=== PATIENT | female | born 1995 | race Caucasian/White ===

== ENCOUNTER 2019-05-17 15:30 | Emergency (ER) | payer SELFPAY ==
--- NOTE | 2019-05-17 16:42 | ER Document Report ---
ED Medical Screen (RME) - General Chief Complaint: Vaginal Pain Stated Complaint: ABDOMINAL PAIN Time Seen by Provider: 05/17/19 16:39 Mode of Arrival: Ambulatory Information source: Patient Notes: 23-year-old female presents to ED for complaint of vaginal bleeding off and on for about 2 weeks. She states is not enough that she was up. Constantly. She states that she will go to the bathroom and her pants will be covered in blood so she does avoid cleans herself and then goes on with work. She states he does sometimes spot with her IUD but this is the first time where she is actually had this much blood. She stated she started having some pelvic cramping last night and is continued today. She states she has an IUD and they told her to feel for her strings. She states her and her had a hard time finding the strings and do not know if they messed anything up while looking for the strings. Patient is alert and oriented respirations regular and unlabored speaking in fu ll sentences. I have greeted and performed a rapid initial assessment of this patient. A comprehensive ED assessment and evaluation of the patient, analysis of test results and completion of medical decision making process will be conducted by an additional ED providers. TRAVEL OUTSIDE OF THE [place] IN LAST 30 DAYS: No - Related Data Allergies/Adverse Reactions: amoxicillin Allergy (Verified 04/26/16 06:44) diphenhydramine [From Benadryl] Allergy (Verified 05/17/19 15:30) Past Medical History - Social History Frequency of alcohol use: None Drug Abuse: None Psychiatric Medical History: Reports: Hx Depression - Immunizations Hx Diphtheria, Pertussis, Tetanus Vaccination: Yes Physical Exam - Vital signs Vitals: Temp Pulse Resp BP Pulse Ox 98.1 F 70 16 121/83 97 05/17/19 15:47 05/17/19 15:47 05/17/19 15:47 05/17/19 15:47 05/17/19 15:47 Course - Vital Signs Vital signs: Temp Pulse Resp BP Pulse Ox 98.1 F 70 16 121/83 97 05/17/19 15:47 05/17/19 15:47 05/17/19 15:47 05/17/19 15:47 05/17/19 15:47
[2019-05-17 17:40] LABS: ABSOLUTE EOSINOPHILS # (AUTO) 0.1 10^3/uL (0.0-0.6); ABSOLUTE LYMPHOCYTES (AUTO) 1.5 10^3/uL (0.5-4.7); ABSOLUTE MONOCYTES (AUTO) 0.8 10^3/uL (0.1-1.4); ABSOLUTE NEUT (AUTO) 11.3 10^3/uL (1.7-8.2); BASOPHILS % (AUTO) 0.3 % (0-2); EOSINOPHILS % (AUTO) 0.5 % (0-6); HEMATOCRIT 41.8 % (36.0-47.0); MEAN CORPUSCULAR HEMOGLOBIN 29.6 pg (27.0-33.4); MEAN CORPUSCULAR HGB CONC 33.4 g/dL (32.0-36.0); MEAN CORPUSCULAR VOLUME 89 fl (80-97); MONOCYTES % (AUTO) 5.5 % (3-13); PLATELET COUNT 214 10^3/uL (150-450); RED BLOOD COUNT 4.72 10^6/uL (3.72-5.28); RED CELL DISTRIBUTION WIDTH 12.4 % (11.5-14.0); SEGMENTED NEUTROPHILS % (AUTO) 82.7 % (42-78); TOTAL CELLS COUNTED % (AUTO) 100 %; WHITE BLOOD COUNT 13.7 10^3/uL (4.0-10.5)
[2019-05-17 17:45] LABS: APPEARANCE,URINE CLEAR; BILIRUBIN,URINE NEGATIVE (NEGATIVE); COLOR,URINE YELLOW; GLUCOSE, URINE NEGATIVE (NEGATIVE); KETONES,URINE NEGATIVE (NEGATIVE); LEUKOCYTE ESTERASE,URINE NEGATIVE (NEGATIVE); NITRITE,URINE NEGATIVE (NEGATIVE); PROTEIN,URINE NEGATIVE (NEGATIVE); UROBILINOGEN,URINE NEGATIVE mg/dL (<2.0)
[2019-05-17 17:57] LABS: ALBUMIN 4.8 g/dL (3.5-5.0); ALKALINE PHOSPHATASE 67 U/L (38-126); ANION GAP 11 (5-19); ASPARTATE AMINO TRANSFERASE 24 U/L (14-36); BILIRUBIN,DIRECT 0.1 mg/dL (0.0-0.4); BILIRUBIN,TOTAL 0.7 mg/dL (0.2-1.3); BLOOD UREA NITROGEN 14 mg/dL (7-20); CARBON DIOXIDE 29 mmol/L (22-30); CHLORIDE 102 mmol/L (98-107); GLUCOSE 78 mg/dL (75-110); POTASSIUM 4.5 mmol/L (3.6-5.0); TOTAL PROTEIN 7.7 g/dL (6.3-8.2)
--- NOTE | 2019-05-17 19:20 | RADIOLOGY REPORT (SQ) ---
EXAM DESCRIPTION: U/S NON-OB PELVIS TV W/O DOP COMPLETED DATE/TIME: 05/17/2019 7:09 pm REASON FOR STUDY: vaginal bleeding x2 wk pelvic pain since yesterday COMPARISON: None. TECHNIQUE: Dynamic and static grayscale images acquired of the pelvis via transvaginal approach and recorded on PACS. Additional selected color Doppler and spectral images recorded. LIMITATIONS: None. FINDINGS: UTERUS: Contour normal. No mass. ENDOMETRIAL STRIPE: The IUD is in the endocervical canal. CERVIX: 1.3 cm. No nabothian cysts. RIGHT OVARY AND DOPPLER: Normal size. No worrisome masses. Normal arterial vascular flow without evid ence for torsion. LEFT OVARY AND DOPPLER: Normal size. No worrisome masses. Normal arterial vascular flow without evide nce for torsion. FREE FLUID: None noted. OTHER: No other significant finding. MEASUREMENTS: UTERUS: 7 x 4.9 x 3.4 cm. ENDOMETRIAL STRIPE: 2.3 mm. RIGHT OVARY: 4 x 2.5 x 3.7 cm. LEFT OVARY: 3.5 x 2.2 x 2.2 cm. IMPRESSION: The IUD is very low in position, in the endocervical canal. No other significant findin g. TECHNICAL DOCUMENTATION: JOB ID: [id number] [employer]- All Rights Reserved Rev-01/23 Reading location - IP/workstation name: [email or web address]
[2019-05-17] MEDS ORDERED: HYDROCODONE/ACETAMINOPHEN 5-325 MG TABLET PO ONE (21:26)
[2019-05-17] MEDS ORDERED: HYDROCODONE/ACETAMINOPHEN 5-325 MG (6 TAB/ER DISP) PO PRN (21:29)
--- NOTE | 2019-05-17 21:29 | ER Document Report ---
ED GI/ - General Chief Complaint: Vaginal Pain Stated Complaint: ABDOMINAL PAIN Time Seen by Provider: 05/17/19 16:39 Primary Care Provider: [facility] [Provider Group] - Follow up as needed Mode of Arrival: Ambulatory Notes: Patient is a 23-year-old female who presents to the emergency department with a chief complaint of pelvic pain. Patient states she developed pelvic pain about 24 hours ago. Patient reports she has had intermittent vaginal bleeding for the past 2 months. Patient states she can tell that the bleeding is old as it is brown in color. Patient denies any other vaginal discharge. Patient reports she does have a IUD present for over a year. Patient denies fever. Patient denies specific abdominal pain. Patient denies nausea, vomiting or diarrhea. Patient states that she can feel like something is wrong with the IUD and that is not the right place. TRAVEL OUTSIDE OF THE [place] IN LAST 30 DAYS: No - Related Data Allergies/Adverse Reactions: amoxicillin Allergy (Verified 04/26/16 06:44) diphenhydramine [From Benadryl] Allergy (Verified 05/17/19 15:30) Past Medical History - General Information source: Patient - Social History Smoking Status: Never Smoker Frequency of alcohol use: None Drug Abuse: None Lives with: Spouse/Significant other Family History: Reviewed & Not Pertinent Patient has suicidal ideation: No Patient has homicidal ideation: No - Past Medical History Cardiac Medical History: Reports: None Pulmonary Medical History: Reports: None EENT Medical History: Reports: None Neurological Medical History: Reports: None Endocrine Medical History: Reports: None Renal/ Medical History: Reports: None Malignancy Medical History: Reports: None GI Medical History: Reports: None Musculoskeletal Medical History: Reports None Skin Medical History: Reports None Psychiatric Medical History: Reports: Hx Depression Traumatic Medical History: Reports: None Infectious Medical History: Reports: None Surgical Hx: Negative - Immunizations Hx Diphtheria, Pertussis, Tetanus Vaccination: Yes Review of Systems - Review of Systems Constitutional: No symptoms reported EENT: No symptoms reported Cardiovascular: No symptoms reported Respiratory: No symptoms reported Gastrointestinal: No symptoms reported Genitourinary: See HPI Female Genitourinary: See HPI Musculoskeletal: No symptoms reported Skin: No symptoms reported Hematologic/Lymphatic: No symptoms reported Neurological/Psychological: No symptoms reported Physical Exam - Vital signs Vitals: Temp Pulse Resp BP Pulse Ox 98.1 F 70 16 121/83 97 09/09/19 15:47 05/17/19 15:47 05/17/19 15:47 05/17/19 15:47 05/17/19 15:47 Interpretation: Normal - Notes Notes: GENERAL: Well-appearing, well-nourished and in no acute distress. HEAD: Atraumatic, normocephalic. EYES: Pupils equal round and reactive to light, extraocular movements intact, sclera anicteric, conjunctiva are normal. ENT: Nares patent, oropharynx clear without exudates. Moist mucous membranes. NECK: Normal range of motion, supple without lymphadenopathy or JVD. LUNGS: Breath sounds clear to auscultation bilaterally and equal. No wheezes rales or rhonchi. HEART: Regular rate and rhythm without murmurs, rubs or gallops. ABDOMEN: Soft, nontender, normoactive bowel sounds. No guarding, no rebound. No masses appreciated. BACK: No cervical, thoracic, lumbar midline tenderness. No saddle anesthesia, normal distal neurovascular exam. GENITOURINARY: Deferred. EXTREMITIES: Normal range of motion, no pitting or edema. No clubbing or cyanosis. NEUROLOGICAL: Cranial nerves II through XII grossly intact. Normal speech, normal gait. PSYCH: Normal mood, normal affect. SKIN: Warm, Dry, normal turgor, no rashes or lesions noted. Course - Re-evaluation Re-evalutation: 05/17/19 21:43 IUD was removed. I did discuss with the patient and to use a condom until she finds alternative methods of control. Patient to follow-up with FUGITIVE INVESTIGATOR. 05/17/19 22:03 - Vital Signs Vital signs: Temp Pulse Resp BP Pulse Ox 98.7 F 80 18 110/66 98 05/17/19 20:12 05/17/19 20:12 05/17/19 20:12 05/17/19 20:12 05/17/19 20:12 - Laboratory Result Diagrams: 05/17/19 17:06 05/17/19 17:06 Laboratory results interpreted by me: 05/17/19 05/17/19 17:06 17:06 WBC 13.7 H Lymph % (Auto) 11.0 L Absolute Neuts (auto) 11.3 H Seg Neutrophils % 82.7 H Urine Blood LARGE H - Diagnostic Test Radiology reviewed: Reports reviewed Radiology results interpreted by me: 05/17/19 21:45 Transvaginal US 05/17/19 16:43 IMPRESSION: The IUD is very low in position, in the endocervical canal. No other significant finding. Procedures - Pelvic Exam Pelvic exam Time completed: 21:00 Cultures obtained: Yes Wet prep obtained: Yes Witnessed by: PCT Notes: 05/17/19 21:41 External genitalia was unremarkable. There was no edema, erythema or lesions noted. I was able to insert the speculum and visualize the cervix well. I was able to visualize the IUD strings. Patient does want the IUD removed and it was visualized on ultrasound that was in a very low endocervical position. I did attempt to remove the IUD with a slow steady pull, I did feel some resistance. I did consult with Dr. Ashford who states that if the patient is unable to tolerate the removal she can be seen in the office tomorrow morning. I did discuss this with the patient as she would like to try one more time. During the fourth attempt I was able to remove the IUD which was fully intact. Patient did have a mild amount of bleeding noted from the cervix. Discharge - Discharge Clinical Impression: Pelvic pain, Encounter for IUD removal, Isabell vaginitis Condition: Stable Disposition: HOME, SELF-CARE Additional Instructions: Today you were seen in the emergency department for pelvic pain. Your urine and lab work was unremarkable. You do not have a urinary tract infection. The ultrasound did show a very low positioned IUD. After discussing this with you, you would like this removed. The IUD was removed with some resistance. You may have some vaginal bleeding and cramping. Please use condoms until you are placed on another form of control. Please follow-up with your FUGITIVE INVESTIGATOR as they can discuss other options for control with you. If you develop severe pain, fever, vomiting or any other concerning signs or symptoms please return to the emergency department. Vaginal Yeast Infection You have evidence of a yeast infection -- called "isabell." A vaginal yeast infection often causes itching and discharge. While not dangerous, it can be very unpleasant. A yeast infection often follows the use of powerful antibiotics. It is more likely to occur in diabetics. The treatment now is usually a single pill of Diflucan, but also an antifungal cream or suppository may be used for a few days. You do not need to avoid sexual intercourse. Recurrences are common. You can make a recurrence less likely by wearing cotton underwear and avoiding tight clothing. For mild recurrences, you can try [id number] creams or suppositories that are made specifically for yeast. If the symptoms do not resolve, you should follow up for re-examination. Sometimes treatment of the sexual partner is necessary if infections are recurrent. Prescriptions: Fluconazole [Diflucan] 150 mg PO ONCE PRN #2 tablet PRN Reason: Referrals: [facility] [Provider Group] - Follow up as needed
[2019-05-17 21:42] LABS: T.VAGINALIS (WET MOUNT) NO TRICHOMONAS SEEN; WBCS (WET MOUNT) FEW WBCS SEEN; YEAST (WET MOUNT) YEAST SEEN
[2019-05-17 22:24] VITALS: BP 116/75
[2019-05-17 23:08] LABS: CHLAM PCR NOT DETECTED (NOT DETECT)
== END 2019-05-17 22:24 | disposition home or self-care (01) ==
LOC: ER 15:30
DX: B37.3 Candidiasis of vulva and vagina (principal); R10.2 Pelvic and perineal pain; Z30.432 Encounter for removal of intrauterine contraceptive device; Z88.0 Allergy status to penicillin
CPT/HCPCS: 36415; 76830; 80053; 81001; 84703; 85025; 87210; 87491; 87591

== ENCOUNTER 2019-11-14 18:40 | Emergency (ER) | payer SELFPAY ==
--- NOTE | 2019-11-14 19:41 | ER Document Report ---
ED Medical Screen (RME) - General Chief Complaint: Abdominal Pain Stated Complaint: ABDOMINAL PAIN Time Seen by Provider: 11/14/19 19:37 Mode of Arrival: Ambulatory Information source: Patient Notes: 34-year-old female presented to ED for complaint of left pelvic pain that started on Friday. She states it was kind of fluctuating between bad and not so bad. She thought at first that it was just menstrual cramps. She states it is gotten much worse and now it goes all the way up to her umbilicus. She states she has cramping to the lower abdomen. She denies any burning with urination or foul smell. She states she has to force herself to go to the bathroom or have a stool. States she does not have hard stools when she does go to the bathroom. Denies use of cigarettes alcohol or illicit drugs. She states that she has not had a period in about 2 months but she is very irregular on her menstrual cycles. She denies any previous ovarian cyst. Denies any past medical history. She states she is adopted so she does not know family history. I have greeted and performed a rapid initial assessment of this patient. A comprehensive ED assessment and evaluation of the patient, analysis of test results and completion of medical decision making process will be conducted by an additional ED providers. TRAVEL OUTSIDE OF THE [place] IN LAST 30 DAYS: No - Related Data Allergies/Adverse Reactions: amoxicillin Allergy (Verified 11/14/19 19:34) diphenhydramine [From Benadryl] Allergy (Verified 11/14/19 19:34) Past Medical History Psychiatric Medical History: Reports: Hx Depression - Immunizations Hx Diphtheria, Pertussis, Tetanus Vaccination: Yes Physical Exam - Vital signs Vitals: Temp Pulse Resp BP Pulse Ox 97.9 F 81 18 122/84 100 11/14/19 18:54 11/14/19 18:54 11/14/19 18:54 11/14/19 18:54 11/14/19 18:54 Course - Vital Signs Vital signs: Temp Pulse Resp BP Pulse Ox 97.9 F 81 18 122/84 100 11/14/19 18:54 11/14/19 18:54 11/14/19 18:54 11/14/19 18:54 11/14/19 18:54
[2019-11-14 20:24] LABS: APPEARANCE,URINE CLEAR; BILIRUBIN,URINE NEGATIVE (NEGATIVE); COLOR,URINE YELLOW; GLUCOSE, URINE NEGATIVE (NEGATIVE); KETONES,URINE NEGATIVE (NEGATIVE); PROTEIN,URINE NEGATIVE (NEGATIVE); URINE SPECIFIC GRAVITY 1.015; UROBILINOGEN,URINE NEGATIVE mg/dL (<2.0)
[2019-11-14 20:34] LABS: ABSOLUTE EOSINOPHILS # (AUTO) 0.1 10^3/uL (0.0-0.6); ABSOLUTE LYMPHOCYTES (AUTO) 2.1 10^3/uL (0.5-4.7); ABSOLUTE MONOCYTES (AUTO) 0.6 10^3/uL (0.1-1.4); ABSOLUTE NEUT (AUTO) 8.9 10^3/uL (1.7-8.2); BASOPHILS % (AUTO) 0.2 % (0-2); EOSINOPHILS % (AUTO) 0.7 % (0-6); HEMATOCRIT 41.3 % (36.0-47.0); LYMPHOCYTES % (AUTO) 17.9 % (13-45); MEAN CORPUSCULAR HEMOGLOBIN 30.5 pg (27.0-33.4); MEAN CORPUSCULAR HGB CONC 33.8 g/dL (32.0-36.0); MEAN CORPUSCULAR VOLUME 90 fl (80-97); MONOCYTES % (AUTO) 5.4 % (3-13); PLATELET COUNT 230 10^3/uL (150-450); RED BLOOD COUNT 4.59 10^6/uL (3.72-5.28); RED CELL DISTRIBUTION WIDTH 13.1 % (11.5-14.0); SEGMENTED NEUTROPHILS % (AUTO) 75.8 % (42-78); TOTAL CELLS COUNTED % (AUTO) 100 %; WHITE BLOOD COUNT 11.8 10^3/uL (4.0-10.5)
--- NOTE | 2019-11-14 20:40 | RADIOLOGY REPORT (SQ) ---
EXAM DESCRIPTION: [facility]: US PELVIS TRANSVAGINAL CLINICAL HISTORY: 23 years Female; Pelvic pain no vaginal bleeding; TECHNIQUE: Endovaginal pelvic ultrasound was performed. COMPARISON: 05/17/2019 FINDINGS: Uterus: 7.8 x 4.3 x 5.1 cm, with 12 mm endometrial stripe. No uterine masses. Cervix 2.2 cm Right ovary: 2.7 x 2 x 2.3 cm. Normal vascular flow on Doppler. Left ovary: 3.6 x 3.1 x 3.1 cm. There is a cystic structure with internal echoes 2.8 x 1.7 x 2.7 cm. No hyperemia. No suspicious septation or nodularity.. Normal vascular flow on Doppler. There is a large amount of free fluid in the pelvis, with internal echoes. IMPRESSION: 1. 2.8 cm indeterminate left ovarian cyst , likely hemorrhagic cyst. Consider 6-12 week follow-up. 2. Large amount of free fluid. This is more than would be expected from a hemorrhagic ovarian cyst and is likely secondary to other etiology in the peritoneal cavity. Consider CT abdomen pelvis with oral and intravenous contrast.
[2019-11-14 20:41] LABS: ALBUMIN 4.6 g/dL (3.5-5.0); ALKALINE PHOSPHATASE 55 U/L (38-126); ANION GAP 8 (5-19); ASPARTATE AMINO TRANSFERASE 23 U/L (14-36); BILIRUBIN,TOTAL 0.5 mg/dL (0.2-1.3); BLOOD UREA NITROGEN 10 mg/dL (7-20); CALCIUM 9.4 mg/dL (8.4-10.2); CARBON DIOXIDE 27 mmol/L (22-30); CHLORIDE 105 mmol/L (98-107); GLUCOSE 81 mg/dL (75-110); POTASSIUM 4.2 mmol/L (3.6-5.0); TOTAL PROTEIN 7.2 g/dL (6.3-8.2)
[2019-11-14] MEDS ORDERED: ONDANSETRON HCL INJ/PF 4 MG/2 ML SDV IV ONE (21:05)
[2019-11-14] MEDS ORDERED: NORMAL SALINE 1000 ML 1,000 ML IV ONE (21:05)
[2019-11-14] MEDS ORDERED: MORPHINE SULFATE 10 MG/ML INJ IV ONE (21:05)
--- NOTE | 2019-11-14 21:08 | ER Document Report ---
ED GI/ - General Chief Complaint: Abdominal Pain Stated Complaint: ABDOMINAL PAIN Time Seen by Provider: 11/14/19 19:37 Mode of Arrival: Ambulatory Notes: Patient is a 23-year-old female that comes emergency department for chief complaint of lower abdominal pain that is worse on the left side. She states it started Friday night, she states it is intermittently severe pain, she states at times the pain is so severe she cannot move. She denies vomiting, fever, dysuria, vaginal bleeding or discharge. She denies flank pain. She denies any abdominal surgeries or any daily medications. She denies history of ovarian cysts. She denies any substance abuse history. and daughter are at bedside. TRAVEL OUTSIDE OF THE [place] IN LAST 30 DAYS: No - Related Data Allergies/Adverse Reactions: amoxicillin Allergy (Verified 11/14/19 19:34) diphenhydramine [From Benadryl] Allergy (Verified 11/14/19 19:34) Past Medical History - General Information source: Patient - Social History Smoking Status: Never Smoker Drug Abuse: None Lives with: Family Family History: Reviewed & Not Pertinent Patient has suicidal ideation: No Patient has homicidal ideation: No Psychiatric Medical History: Reports: Hx Depression Surgical Hx: Negative - Immunizations Immunizations up to date: Yes Hx Diphtheria, Pertussis, Tetanus Vaccination: Yes Review of Systems - Review of Systems Constitutional: No symptoms reported EENT: No symptoms reported Cardiovascular: No symptoms reported Respiratory: No symptoms reported Gastrointestinal: See HPI Genitourinary: See HPI Female Genitourinary: See HPI Musculoskeletal: No symptoms reported Skin: No symptoms reported Hematologic/Lymphatic: No symptoms reported Neurological/Psychological: No symptoms reported Physical Exam - Vital signs Vitals: Temp Pulse Resp BP Pulse Ox 97.9 F 81 18 122/84 100 11/14/19 18:54 11/14/19 18:54 11/14/19 18:54 11/14/19 18:54 11/14/19 18:54 - Notes Notes: GENERAL: Patient appears uncomfortable but not in distress, she is lying on her right side HEAD: Normocephalic, atraumatic. EYES: Pupils equal, round, and reactive to light. Extraocular movements intact. ENT: Oral mucosa moist, tongue midline. Oropharynx unremarkable. Airway patent. LUNGS: Clear to auscultation bilaterally, no wheezes, rales, or rhonchi. No respiratory distress. HEART: Regular rate and rhythm. No murmur ABDOMEN: Patient is tender in the mid to lower left abdomen extending to the suprapubic area and slightly to the right abdomen. No upper abdominal tenderness noted. There is some guarding in the left lower abdomen. EXTREMITIES: Moves all 4 extremities spontaneously. No edema, normal radial and dorsalis pedis pulses bilaterally. No cyanosis. BACK: no cervical, thoracic, lumbar midline tenderness. No saddle anesthesia, normal distal neurovascular exam. Moves all extremities in full range of motion. NEUROLOGICAL: Alert and oriented x3. Normal speech. Cranial nerves II through XII grossly intact. PSYCH: Normal affect, normal mood. SKIN: Warm, dry, normal turgor. No rashes or lesions noted. Course - Re-evaluation Re-evalutation: CBC unremarkable other than mild leukocytosis, chemistry unremarkable, urinalysis unremarkable, negative. Transvaginal ultrasound showing hemorrhagic cyst with large amount of free flui d, radiologist recommends CT of the abdomen pelvis with oral and IV contrast to evaluate the free fluid. Discussed this with patient. She will be medicated for pain, CAT scan will be performed to rule out concerning abnormality in the abdomen/pelvis. She has no discharge, bleeding, concerns for STD, pelvic exam discussed and deferred. CT showing what is most consistent with a ruptured ovarian cyst, hemorrhagic cyst. No follow-up recommended. No other concerning findings. Discussed with patient. She will be provided with pain medication, discussed expectations, follow-up, return precautions. Patient states appreciation and agreement. Stable and well-appearing at time of discharge. - Vital Signs Vital signs: Temp Pulse Resp BP Pulse Ox 98.5 F 91 14 101/65 98 11/15/19 00:59 11/15/19 00:59 11/15/19 00:59 11/15/19 00:59 11/15/19 00:59 - Laboratory Result Diagrams: 11/14/19 19:45 11/14/19 19:45 Laboratory results interpreted by me: 11/14/19 11/14/19 19:45 19:45 WBC 11.8 H Absolute Neuts (auto) 8.9 H Leukocyte Esterase Rfl TRACE H Discharge - Discharge Clinical Impression: Lower abdominal pain Condition: Stable Disposition: HOME, SELF-CARE Additional Instructions: Your work-up indicates both hemorrhagic cyst on the left ovary and an area where you had a ruptured cyst with some surrounding free fluid. This can be painful but this should simply resolve with time. Take the pain medication if needed, rest, follow-up with primary care. Return if you worsen including vomiting, fever, severe worsening pain, or any other concerning symptoms. Prescriptions: Oxycodone HCl/Acetaminophen [Percocet 5-325 mg Tablet] 1 - 2 tab PO TID PRN #10 tablet PRN Reason: Forms: Return to Work
--- NOTE | 2019-11-15 00:28 | RADIOLOGY REPORT (SQ) ---
CT abdomen and pelvis with contrast on 11/15/2019 at 12:01 AM CLINICAL INDICATION: Severe lower abdominal pain, free fluid on ultrasound TECHNIQUE: Multiple axial images are obtained throughout the abdomen and pelvis following the administration of IV and oral contrast. 82 mL of Omnipaque 350 contrast was administered intravenously. This exam was performed according to our departmental dose-optimization program, which includes automated exposure control, adjustment of the mA and/or kV according to patient size and/or use of iterative reconstruction technique. Total DLP is 956.75 mGy*cm. COMPARISON: Ultrasound from 11/14/2019 FINDINGS: Abdomen: There is minimal bibasilar atelectasis. Solid abdominal organs are unremarkable. Small amount of free fluid is noted in the abdomen especially around the spleen and in the left paracolic gutter. This is relatively high density fluid. There is no free air. There is no abdominal adenopathy. The abdominal portion of the GI tract is unremarkable. Pelvis: There is 2.8 x 2.7 x 2.2 cm left ovarian cyst that has irregular borders. This corresponds to the hemorrhagic ovarian cyst on ultrasound. The irregular borders are consistent with a partially ruptured hemorrhagic ovarian cyst. There is a moderate amount of high density fluid in the pelvis consistent with hemoperitoneum and the findings are consistent with a partially ruptured left-sided hemorrhagic ovarian cyst accounting for the fluid in the abdomen and pelvis. Pelvic organs otherwise appear unremarkable by CT. There is no pelvic adenopathy. Pelvic portion of the GI tract including the appendix is unremarkable. No bony abnormality is noted. IMPRESSION: 1. Findings consistent with a partially ruptured hemorrhagic left ovarian cyst with hemoperitoneum in the abdomen and pelvis. Based upon the ultrasound appearance and size of this hemorrhagic ovarian cyst no routine follow-up is recommended. 2. No other acute abnormality.
[2019-11-15] MEDS ORDERED: ONDANSETRON ODT 4 MG TAB (6 TAB/ER DISP) PO PRN (00:42)
[2019-11-15] MEDS ORDERED: HYDROCODONE/ACETAMINOPHEN 5-325 MG (6 TAB/ER DISP) PO PRN (00:42)
[2019-11-15 01:03] VITALS: BP 101/65
== END 2019-11-15 01:11 | disposition home or self-care (01) ==
LOC: ER 18:40
DX: N83.202 Unspecified ovarian cyst, left side (principal); R18.8 Other ascites; D72.829 Elevated white blood cell count, unspecified; Z88.0 Allergy status to penicillin; Z88.8 Allergy status to other drugs, medicaments and biological substances
CPT/HCPCS: 99284; 96361; 96374; 36415; 87086; 84703; 85025; 80053; 81001; 76830; 74177; J2270; J2405; J7030